=== PATIENT | male | born 1955 | race Caucasian/White ===

== ENCOUNTER 2023-11-26 11:27 | Emergency (ER) | payer OTHER, SELFPAY ==
--- NOTE | ~2023-11-26 | CT_ITS ---
EXAMINATION: CT ABDOMEN AND PELVIS WITH CONTRAST CLINICAL INFORMATION: Abdominal pain, obstruction versus diverticulitis COMPARISON: CT abdomen pelvis 08/30/2019. TECHNIQUE: Multidetector volumetric images were obtained from the superior aspect of the liver through the pubic symphysis following administration 85 mL of Omnipaque 350 intravenous contrast. Sagittal and coronal reformatted images were obtained on the technologist's workstation. Oral contrast: No This CT examination was performed using dose optimization techniques as appropriate, variously including the following: *Automated exposure control *Adjustment of mA and/or kV according to patient size (this includes techniques or standardized protocols for targeted exams where dose is matched to indication/reason for exam; i.e. extremities or head) *Use of iterative reconstruction technique DLP: 411 mGy-cm FINDINGS: Evaluation of the mid abdomen limited by motion artifact. LUNG BASES: Unremarkable. LIVER AND BILIARY TREE: Unremarkable. GALLBLADDER: Gallbladder partially decompressed, otherwise unremarkable. PANCREAS: Unremarkable. SPLEEN: Unremarkable. ADRENAL GLANDS: Unremarkable. KIDNEYS AND URETERS: Unremarkable. GASTROINTESTINAL TRACT: Postoperative appearance from right partial colectomy with primary ileocolonic anastomosis in the right upper abdomen. Mild scattered sigmoid predominant colonic diverticulosis. Focal inflammatory fat stranding about a presumed thick-walled diverticulum in the colonic splenic flexure (series 4, image 285; series 5, image 29). No extraluminal gas or pericolonic fluid collections identified, within limitations of mild motion artifact at that location. VASCULAR: Mild aortoiliac calcific atherosclerosis again seen. LYMPH NODES: No lymphadenopathy. PERITONEUM: No ascites. BLADDER: Unremarkable. PELVIC VISCERA: Unremarkable. ABDOMINAL AND PELVIC WALL: Unremarkable. OSSEOUS STRUCTURES: Unremarkable. CT/CT abdomen pelvis w IV con IMPRESSION: Acute uncomplicated diverticulitis in the colonic splenic flexure. No extraluminal gas or pericolonic fluid collections identified, within limitations of mild motion artifact.
[2023-11-26 11:33] VITALS: BP 106/42; PULSE 65; RESP 18; O2SAT 100; BMI 22.5
[2023-11-26] MEDS: 0.9 % Sodium Chloride 1,000 ML 999 ML IV ×2 (12:24→15:11)
--- NOTE | 2023-11-26 12:27 | PC.NURSE ---
IV established, labs obtained and sent. fluids infusing, call marquez within reach.
[2023-11-26 12:29] LABS: MANUAL DIFF FLAG NO
[2023-11-26 12:30] LABS: Basophils Percent Auto 0.3 % (0-2); Eosinophils Absolute Auto 0.1 X10*3/uL (0.0-0.4); Eosinophils Percent Auto 0.5 % (0-4); Hematocrit 36.2 % (42.0-52.0); Hemoglobin 12.1 g/dl (14.0-18.0); Imm Gran Abs Auto 0.04 X10*3/uL (0.00-0.03); Imm Gran Pct Auto 0.4 % (0.0-0.4); Lymphocytes Absolute Auto 1.4 X10*3/uL (1.2-4.9); Lymphocytes Percent Auto 12.4 % (20-40); Mean Corpuscular HGB Conc 33.4 g/dl (31.0-36.0); Mean Corpuscular Hemoglobin 30.9 pg (27.0-33.0); Mean Corpuscular Volume 92.3 fL (80.0-98.0); Mean Platelet Volume 9.2 fL (9.4-12.4); Monocytes Absolute Auto 0.5 X10*3/uL (0.1-1.2); Monocytes Percent Auto 4.8 % (2-11); Neutrophils Percent Auto 81.6 % (45-73); Platelet Count 127 X10*3/uL (160-400); Red Blood Count 3.92 X10*6/uL (4.60-5.80); Red Cell Distribution Width 12.1 % (11.0-16.0); White Blood Count 11.1 X10*3/uL (4.8-10.8)
--- NOTE | 2023-11-26 12:30 | ED_ITS ---
HPI - Abdominal Pain General Chief Complaint: Abdominal Pain Stated Complaint: kidney stone Time Seen by Provider: 11/26/23 11:47 Source: patient Mode of arrival: ambulatory History of Present Illness HPI narrative: 67-year-old male reports a surgical history and woke up this morning with abdominal pain that he describes in the right lower quadrant without associated fever/chills/nausea/vomiting but states he can no longer pass flatus and has not had a bowel movement. He denies any dysuria. Patient reports that he has had head bobbing action and bilateral upper extremity tremor for many years. Related Data Previous Rx's ?Medication ?Instructions ?Recorded amoxicillin 875 mg-potassium 1 tab PO BID 10 days #20 tabs 11/26/23 clavulanate 125 mg tablet Allergies Allergy/AdvReac Type Severity Reaction Status Date / Time aspirin [ASA] Allergy Severe FACIAL Verified 11/26/23 11:34 SWELLING Review of Systems Review of Systems Pertinent positives and negatives as stated in HPI PMFSH Past Medical History Source: nursing notes reviewed Social History Social History Advance Directives: No Do you have a plan to hurt others: No Plan Physical Exam ED Vital Signs: Vital Signs - 24 hr 11/26/23 11:33 11/26/23 15:24 Temperature 97.7 F Pulse Rate 65 73 Respiratory Rate 18 16 Blood Pressure 106/42 L 143/77 H Pulse Oximetry 100 99 Oxygen Delivery Method Room Air Room Air BMI result Body Mass Index 22.5 VITAL SIGNS: Reviewed. GENERAL: Well developed, well nourished, in no acute distress. HEAD: Normocephalic/atraumatic EYES: PERRLA, EOMI LUNGS: Normal breath sounds. No adventitious sounds or accessory muscle use. SpO2<100> CARDIOVASCULAR: Regular rate and rhythm without noted murmurs ABDOMEN: Soft, lower abdominal discomfort, scar consistent with exploratory laparotomy, non-distended with hypoactive bowel sounds. MUSCULOSKELETAL: No tenderness, deformities, or effusions noted on gross inspection. EXTREMITIES: No cyanosis, clubbing or edema. SKIN: Inspection of the skin reveals no rashes NEUROLOGIC: Alert and oriented x 4. Strength and sensation to light touch were grossly intact x 4. Medical Decision Making Medical Decision Making MDM Narrative: 67-year-old male with history and clinical presentation, DDX: Obstruction, diverticulitis, low clinical suspicion for perforation, possibility of appendicitis INTERVENTION: IV fluids, antibiotics I reviewed all investigations and hematologic indices demonstrate a very subtle elevation leukocytes, there is a normocytic anemia and no history or clinical findings to suggest acute bleeding, patient has a mild thrombocytopenia. Chemistry indices demonstrate a mild MELBA but otherwise no electrolyte or liver enzyme derangements. Urinalysis negative for UTI/hematuria. CT scan demonstrates diverticulitis. Will p.o. challenge and if tolerated patient will be able to go home with 10 days of antibiotics, will also repeat BNP as he has received a total of 2 L of IV fluids. Signed out to Dr Pickett - f/u BMP then d/c Differential Diagnosis Differential Diagnoses: The differential diagnosis associated with the presentation includes Please see the discussion above Admission/Observation Consideration of admission/observation: Escalation of care including admission/observation considered Please see the discussion above Lab Data MDM Lab Attestation statement: I reviewed the patient's lab results. Please see the discussion above 11/26/23 12:24 11/26/23 12:24 Labs: Lab Results 11/26/23 11/26/23 11/26/23 Range/Units 12:24 14:32 15:14 WBC 11.1 H (4.8-10.8) X10*3/uL RBC 3.92 L (4.60-5.80) X10*6/uL Hgb 12.1 L (14.0-18.0) g/dl Hct 36.2 L (42.0-52.0) % MCV 92.3 (80.0-98.0) fL MCH 30.9 (27.0-33.0) pg MCHC 33.4 (31.0-36.0) g/dl RDW 12.1 (11.0-16.0) % Plt Count 127 L (160-400) X10*3/uL MPV 9.2 L (9.4-12.4) fL Immature Gran % (Auto) 0.4 (0.0-0.4) % Neut % (Auto) 81.6 H (45-73) % Lymph % (Auto) 12.4 L (20-40) % [place] % (Auto) 4.8 (2-11) % Eos % (Auto) 0.5 (0-4) % Baso % (Auto) 0.3 (0-2) % Lymph # (Auto) 1.4 (1.2-4.9) X10*3/uL [place] # (Auto) 0.5 (0.1-1.2) X10*3/uL Eos # (Auto) 0.1 (0.0-0.4) X10*3/uL Baso # (Auto) 0.0 (0.0-0.2) X10*3/uL Abs Immat Gran (auto) 0.04 H (0.00-0.03) X10*3/uL Absolute Neuts (auto) 9.0 H (2.0-8.3) x10*3/uL Absolute Nucleated RBC 0.000 (0.0-0.012) X10*3/uL Nucleated RBC % (auto) 0.0 (0.0-0.2) /100WBC Sodium 140 (135-145) mmol/L Potassium 4.3 (3.3-5.1) mmol/L Chloride 110 H (96-108) mmol/L Carbon Dioxide 21 L (22-29) mmol/L Anion Gap 13 (12-20) BUN 24 H (9-16) mg/dL Creatinine 1.43 H (0.5-1.4) mg/dL Estim Creat Clear Calc 45.9 Estimated GFR 50 Random Glucose 183 H (60-115) mg/dL Lactic Acid 1.7 (0.5-2.0) mmol/L Calcium 9.0 (8.4-10.2) mg/dL Total Bilirubin 0.5 (0.0-1.0) mg/dL Direct Bilirubin 0.2 (0.0-0.5) mg/dL AST 15 (5-37) U/L ALT 9 (0-40) U/L Alkaline Phosphatase 63 (39-117) U/L Total Protein 7.0 (6.5-8.0) g/dL Albumin 3.9 (3.5-5.0) g/dL Lipase 26 (8-78) U/L Urine Color Yellow Urine Appearance Clear Urine pH 7.0 (5.0-9.0) Ur Specific [place] 1.020 (1.005-1.025) Urine Protein Negative (Neg-Trace) mg/dL Urine Glucose (UA) Negative (Negative) mg/dL Urine Ketones Negative (Negative) mg/dL Urine Blood Negative (Negative) Urine Nitrite Negative (Negative) Ur Leukocyte Esterase Negative (Negative) Radiology Impression Discussion of test interpretation with radiology: I have reviewed the radiologist's reading. Radiologist Impression: Please see the discussion above External Record Review External record reviewed: Outpatient record and Prior outpatient labs Medications Administered Discontinued Medications Generic Name Dose Route Start Last Admin Trade Name Freq PRN Reason Stop Dose Admin Sodium Chloride 1,000 mls @ 999 mls/hr 11/26/23 12:00 11/26/23 13:30 Ns IV 11/26/23 13:00 Infused .Q1H1M ALANA Infusion Sodium Chloride 1,000 mls @ 999 mls/hr 11/26/23 13:15 11/26/23 15:11 Ns IV 11/26/23 14:15 999 mls/hr .Q1H1M ALANA Administration Piperacillin Sod/Tazobactam 50 mls @ 100 mls/hr 11/26/23 14:50 11/26/23 15:14 Sod 3.375 gm/ Sodium Chloride IV 11/26/23 15:19 100 mls/hr ONCE ONE Administration Iohexol 100 ml 11/26/23 13:50 11/26/23 13:50 Iohexol 350 Mg/Ml 100 Ml Infus..Btl IV 11/26/23 13:51 85 ml ONCE ONE Administration Critical Care Time Critical Care Time Critical Care Time: Yes Total Critical Care Time: 45 Attestation: I personally attest to this time spent taking care of the patient. Discharge Plan Discharge Clinical Impression: MELBA (acute kidney injury), Diverticulitis Patient Disposition: Still a Patient Instructions: Diverticulitis (ED), Diverticulitis Diet (ED), Acute Kidney Injury (DC) Additional Instructions: Complete entire course of antibiotics. You will need a colonoscopy 6 weeks after completion of the antibiotics, please discuss this with your primary care doctor. Prescriptions: New amoxicillin-pot clavulanate 875-125 mg tablet 1 tab PO BID 10 Days Qty: 20 0RF Referrals: Peter Lew MD [Primary Care Provider] - Print Language: Kazakh
[2023-11-26 12:49] LABS: Alanine Aminotransferase 9 U/L (0-40); Albumin Level 3.9 g/dL (3.5-5.0); Alkaline Phosphatase 63 U/L (39-117); Anion Gap 13 (12-20); Aspartate Amino Transferase 15 U/L (5-37); Bilirubin Direct 0.2 mg/dL (0.0-0.5); Bilirubin Total 0.5 mg/dL (0.0-1.0); Blood Urea Nitrogen 24 mg/dL (9-16); Carbon Dioxide 21 mmol/L (22-29); Chloride 110 mmol/L (96-108); Creatinine Clr Calc Pharmacy 45.9; Estimated Glomerular Filt Rate 50; Glucose Random 183 mg/dL (60-115); Lipase 26 U/L (8-78); Potassium 4.3 mmol/L (3.3-5.1); Sodium 140 mmol/L (135-145)
[2023-11-26] MEDS: iohexoL 350 MG/ML 100 ML INFUS..BTL IV (13:50)
[2023-11-26 14:45] LABS: Appearance Urine Clear; Color Urine Yellow; Glucose Urine UA Negative (Negative); Leukocyte Esterase Urine Negative (Negative); Nitrite Urine Negative (Negative); Urine Blood Negative (Negative); Urine Ketones Negative (Negative); Urine Protein Negative (Neg-Trace)
[2023-11-26] MEDS: Piperacillin Sodium/Tazobactam 3.375 GM in 0.9 % Sodium Chloride 50 ML IV (15:14)
[2023-11-26 15:24] VITALS: BP 143/77; PULSE 73; RESP 16; TEMP 36.5; O2SAT 99
[2023-11-26 15:38] LABS: Lactic Acid 1.7 mmol/L (0.5-2.0)
--- NOTE | 2023-11-26 16:31 | PC.NURSE ---
patient ambulated to bathroom with steady gait
[2023-11-26 16:42] LABS: Anion Gap 12 (12-20); Blood Urea Nitrogen 21 mg/dL (9-16); Calcium 8.6 mg/dL (8.4-10.2); Carbon Dioxide 18 mmol/L (22-29); Chloride 115 mmol/L (96-108); Creatinine Clr Calc Pharmacy 53.8; Estimated Glomerular Filt Rate 60; Glucose Random 95 mg/dL (60-115); Potassium 4.4 mmol/L (3.3-5.1); Sodium 141 mmol/L (135-145)
[2023-11-26 18:00] VITALS: BP 143/77; PULSE 73; RESP 16; TEMP 36.5; O2SAT 99
== END 2023-11-26 18:01 | disposition home or self-care (01) ==
PROVIDERS: Student in an Organized Health Care Education/Training Program; Emergency Provider Emergency Medicine; PCP Pediatrics
DX: N17.9 Acute kidney failure, unspecified (principal); R10.31 Right lower quadrant pain; K57.92 Diverticulitis of intestine, part unspecified, without perforation or abscess without bleeding
CPT/HCPCS: 36415; 74177; 80048; 80076; 81003; 83605; 83690; 85025; 87040; 96361; 96374; 99284; 99285; J2543; Q9967

== ENCOUNTER 2024-05-06 15:02 | Emergency (ER) | payer OTHER, SELFPAY ==
[2024-05-06 15:05] VITALS: BP 117/64; PULSE 74; RESP 16; TEMP 36.2; O2SAT 97; BMI 27.1
--- NOTE | 2024-05-06 15:05 | ED.GENADULT ---
HPI - General Adult General Chief complaint: General Medical Stated complaint: Choked on food still in throat Time Seen by Provider: 05/06/24 17:20 Source: patient History of Present Illness ED Provider: Dr. Miesha Osuna HPI narrative: patient comes to the emergency room complaining of piece of steak lodged in the esophagus. Patient states that he choked earlier today, could not breathe, his did Heimlich maneuver and patient started vomiting. Patient states that he was able to breathe afterwards but then started vomiting . Patient states that his drank giving him water to drink but patient kept vomiting it. Patient states that he still has foreign body sensation in the esophagus. Related Data Previous Rx's ?Medication ?Instructions ?Recorded amoxicillin 875 mg-potassium 1 tab PO BID 10 days #20 tabs 11/26/23 clavulanate 125 mg tablet Allergies Allergy/AdvReac Type Severity Reaction Status Date / Time aspirin [ASA] Allergy Severe FACIAL Verified 05/06/24 15:12 SWELLING Review of Systems Review of Systems: Constitutional : No Weight loss, No Fever, No Chills, No Night Sweats, No Fatigue, No Malaise ENT/Mouth : No Hearing loss, No Ear Pain, No Nasal Congestion, No Sinus Pain, No Hoarseness, No sore throat, No Rhinorrhea, No Swallowing Difficulty Eyes: No Eye Pain, No Swelling, No Redness, No Foreign Body, No Discharge, No Vision Changes Cardiovascular : No Chest Pain, No SOB, No Dyspnea on Exertion, No Orthopnea, No Edema, No Palpitations Respiratory : No Cough, No Sputum, No Wheezing, No Smoke Exposure, No Dyspnea Gastrointestinal : Complaining of foreign body sensation stuck in the esophagus, stick.No Nausea, No Vomiting, No Diarrhea, No Constipation, No abdominal Pain, No Hematochezia, No Melena Genitourinary : no irregular bleeding, No Dysuria, No Urinary Frequency, No Hematuria, No Urinary Incontinence, No Urgency, No Flank Pain, No Urinary Flow Changes, No Hesitancy Musculoskeletal : No joint pain, No Myalgias, No Joint Swelling Skin : No Skin Lesions, No rash Neuro : No Weakness, No Numbness, No Paresthesias, No Loss of Consciousness, No Dizziness, No Headache Psych : No Anxiety/Panic, No Depression, No SI/HI/AH/VH, No Social Issues, Heme/Lymph: No Bruising, No Bleeding,No Lymphadenopathy Endocrine : No Polyuria, No Polydipsia, No Temperature Intolerance [facility] Social History Social History Advance Directives: No Advance Directives Information Provided: No Physical Exam ED Vital Signs: Vital Signs - 24 hr 05/06/24 15:05 05/06/24 15:40 05/06/24 17:31 Temperature 97.1 F Pulse Rate 74 61 Respiratory Rate 16 16 Blood Pressure 117/64 133/71 Pulse Oximetry 97 98 Oxygen Delivery Method Room Air Room Air 05/06/24 18:04 Temperature Pulse Rate 60 Respiratory Rate 16 Blood Pressure 121/66 Pulse Oximetry 99 Oxygen Delivery Method Room Air BMI result Body Mass Index 27.1 Const Other: Appearance: Alert. Oriented X3. No acute distress. Well-appearing Eyes: Pupils equal, round and reactive to light. ENT: Pharynx normal. Neck: Normal inspection. Neck supple. No lymph nodes noted. No crepitus CVS: Normal heart rate and rhythm. Pulses normal. Normal S1 and S2 Respiratory: No respiratory distress. Breath sounds normal. No Wheezing. No rales Abdomen: Soft and nontender. No rigidity. No distention. Skin: Skin warm and dry. Normal skin color. Normal skin turgor. Extremities: No lower extremity edema. No Lacerations. No Rash Neuro: Oriented X 3. No motor deficit. No sensory deficit. Moving all extremities. No slurred speech. CN 2 through 12 grossly intact Psych: calm, cooperative, normal affect Course Course Course Narrative: This is a Rapid Medical Examination (RME) performed by Billie Keller PA-C in triage. Full HPI, ROS, assessment and treatment plan per primary provider in the Main ED. 68 yo male here for eval of esophageal food bolus. admits to eating baked potato and steak 10 mins [employer] in ED, began choking. friend attempted Heimlich and states patient brought phelgm up. patient reports feeling like there is still something stuck in his throat. no hx of similar. has attempted to drink cranberry juice however could not get it down. + well appearing Plan: further eval in back Medications Administered Discontinued Medications Generic Name Dose Route Start Last Admin Trade Name Freq PRN Reason Stop Dose Admin Glucagon 1 mg 05/06/24 15:31 05/06/24 15:37 Glucagon Hcl 1 Mg Vial IVPUSH 05/06/24 15:32 1 mg ONCE ONE Administration Nitroglycerin 0.4 mg 05/06/24 17:26 05/06/24 17:31 Nitroglycerin 0.4 Mg Tab.Subl SUBLINGUAL 05/06/24 17:27 0.4 mg ONCE ONE Administration Medical Decision Making Medical Decision Making [facility] Narrative: my interpretation of labs, normal hematology, normal chemistry. - Patient was given IV glucagon on arrival, patient tried swallowing but states that he did still have foreign body sensation, One tablet of sublingual nitroglycerin was given. Patient was able to drink a whole can of emi scotty and patient states that he feels well. the sensation of foreign body sensation in the esophagus has resolved - On discharge, blood pressure 121/66, pulse 60, temperature normal Lab Data [facility] Lab Attestation statement: I reviewed the patient's lab results. 05/06/24 15:28 05/06/24 15:28 Labs: Lab Results 05/06/24 Range/Units 15:28 WBC 7.2 (4.8-10.8) X10*3/uL RBC 3.99 L (4.60-5.80) X10*6/uL Hgb 12.3 L (14.0-18.0) g/dl Hct 36.8 L (42.0-52.0) % MCV 92.2 (80.0-98.0) fL MCH 30.8 (27.0-33.0) pg MCHC 33.4 (31.0-36.0) g/dl RDW 12.4 (11.0-16.0) % Plt Count 141 L (160-400) X10*3/uL MPV 9.6 (9.4-12.4) fL Immature Gran % (Auto) 0.6 H (0.0-0.4) % Neut % (Auto) 57.5 (45-73) % Lymph % (Auto) 30.1 (20-40) % [place] % (Auto) 8.3 (2-11) % Eos % (Auto) 3.1 (0-4) % Baso % (Auto) 0.4 (0-2) % Lymph # (Auto) 2.2 (1.2-4.9) X10*3/uL [place] # (Auto) 0.6 (0.1-1.2) X10*3/uL Eos # (Auto) 0.2 (0.0-0.4) X10*3/uL Baso # (Auto) 0.0 (0.0-0.2) X10*3/uL Abs Immat Gran (auto) 0.04 H (0.00-0.03) X10*3/uL Absolute Neuts (auto) 4.2 (2.0-8.3) x10*3/uL Absolute Nucleated RBC 0.000 (0.0-0.012) X10*3/uL Nucleated RBC % (auto) 0.0 (0.0-0.2) /100WBC PT 10.5 L (10.9-12.4) SEC INR 0.9 (0.9-1.1) Sodium 144 (135-145) mmol/L Potassium 4.2 (3.3-5.1) mmol/L Chloride 113 H (96-108) mmol/L Carbon Dioxide 23 (22-29) mmol/L Anion Gap 12 (12-20) BUN 15 (9-16) mg/dL Creatinine 1.30 (0.5-1.4) mg/dL Estim Creat Clear Calc 48.9 Estimated GFR 55 Random Glucose 100 (60-115) mg/dL Calcium 9.5 D (8.4-10.2) mg/dL Total Bilirubin 0.4 (0.0-1.0) mg/dL AST 15 (5-37) U/L ALT 11 (0-40) U/L Alkaline Phosphatase 67 (39-117) U/L Total Protein 7.1 (6.5-8.0) g/dL Albumin 3.9 (3.5-5.0) g/dL Discharge Plan Discharge Clinical Impression: Esophageal foreign body Patient Disposition: Home, Self-Care Instructions: Esophageal Foreign Body (ED) Additional Instructions: Please follow-up with your primary care physician tomorrow. If you have any worsening or new symptoms, please return to the emergency room or call 911 Prescriptions: No Action amoxicillin-pot clavulanate 875-125 mg tablet 1 tab PO BID 10 Days Qty: 20 0RF Print Language: Vietnamese
[2024-05-06] MEDS: glucagon HCL 1 MG VIAL IVPUSH (15:37)
[2024-05-06 15:38] LABS: MANUAL DIFF FLAG NO
[2024-05-06 15:39] LABS: Basophils Percent Auto 0.4 % (0-2); Eosinophils Absolute Auto 0.2 X10*3/uL (0.0-0.4); Eosinophils Percent Auto 3.1 % (0-4); Hematocrit 36.8 % (42.0-52.0); Hemoglobin 12.3 g/dl (14.0-18.0); Imm Gran Abs Auto 0.04 X10*3/uL (0.00-0.03); Imm Gran Pct Auto 0.6 % (0.0-0.4); Lymphocytes Absolute Auto 2.2 X10*3/uL (1.2-4.9); Lymphocytes Percent Auto 30.1 % (20-40); Mean Corpuscular HGB Conc 33.4 g/dl (31.0-36.0); Mean Corpuscular Hemoglobin 30.8 pg (27.0-33.0); Mean Corpuscular Volume 92.2 fL (80.0-98.0); Mean Platelet Volume 9.6 fL (9.4-12.4); Monocytes Absolute Auto 0.6 X10*3/uL (0.1-1.2); Monocytes Percent Auto 8.3 % (2-11); Neutrophils Absolute Auto 4.2 x10*3/uL (2.0-8.3); Neutrophils Percent Auto 57.5 % (45-73); Platelet Count 141 X10*3/uL (160-400); Red Blood Count 3.99 X10*6/uL (4.60-5.80); Red Cell Distribution Width 12.4 % (11.0-16.0); White Blood Count 7.2 X10*3/uL (4.8-10.8)
[2024-05-06 15:40] VITALS: RESP 16; O2SAT 98
--- NOTE | 2024-05-06 15:41 | PC.NURSE ---
Pt arrived to Ed bed unable to answer this RN questions but is able to nod head yes or no. family member at bedside stating he was swallowing a small piece of steak, pt does not have any history of choking in the past, pt has no previous throat surgeries. PT O2 stable on RA, IV placed, labs sent, IV glucagon order placed and given. 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
[2024-05-06 15:48] LABS: INTERNATIONAL NORM RATIO 0.9 (0.9-1.1); Prothrombin Time 10.5 SEC (10.9-12.4)
[2024-05-06 16:04] LABS: Alanine Aminotransferase 11 U/L (0-40); Albumin Level 3.9 g/dL (3.5-5.0); Alkaline Phosphatase 67 U/L (39-117); Anion Gap 12 (12-20); Aspartate Amino Transferase 15 U/L (5-37); Bilirubin Total 0.4 mg/dL (0.0-1.0); Blood Urea Nitrogen 15 mg/dL (9-16); Calcium 9.5 mg/dL (8.4-10.2); Carbon Dioxide 23 mmol/L (22-29); Chloride 113 mmol/L (96-108); Creatinine Clr Calc Pharmacy 48.9; Estimated Glomerular Filt Rate 55; Glucose Random 100 mg/dL (60-115); Potassium 4.2 mmol/L (3.3-5.1); Sodium 144 mmol/L (135-145); Total Protein 7.1 g/dL (6.5-8.0)
[2024-05-06 17:31] VITALS: BP 133/71; PULSE 61
[2024-05-06] MEDS: Nitroglycerin 0.4 MG TAB.SUBL SUBLINGUAL (17:31)
[2024-05-06 18:04] VITALS: BP 121/66; PULSE 60; RESP 16; O2SAT 99
[2024-05-06 18:16] VITALS: BP 121/66; PULSE 60; RESP 16; TEMP 37.2; O2SAT 99
== END 2024-05-06 18:17 | disposition home or self-care (01) ==
PROVIDERS: Emergency Provider Emergency Medicine
DX: R09.89 Other specified symptoms and signs involving the circulatory and respiratory systems (principal); R06.02 Shortness of breath; Z79.899 Other long term (current) drug therapy
CPT/HCPCS: 36415; 80053; 85025; 85610; 96374; 99284; J1610

== ENCOUNTER 2025-06-09 13:45 | Emergency (ER) | payer OTHER, SELFPAY ==
--- NOTE | ~2025-06-09 | CT_ITS ---
CLINICAL HISTORY: low back pain s p fall CT lumbar spine without contrast Comparison: None provided Findings: Normal vertebral body alignment. No acute fractures or dislocations. Mild degenerative changes are demonstrated throughout with facet arthropathy without findings of high-grade canal stenosis. Visualized abdominal contents unremarkable. IMPRESSION: No acute lumbar spine findings. This document has been electronically signed by: Edilson Hoyt MD on 06/09/2025 16:15:14
[2025-06-09 14:31] VITALS: BP 131/75; PULSE 94; RESP 16; TEMP 36.8; O2SAT 97; BMI 21.5
--- NOTE | 2025-06-09 14:33 | ED_ITS ---
HPI - General Adult General Chief complaint: Fall Stated complaint: fall, back pain Time Seen by Provider: 06/09/25 16:13 Source: patient and family Mode of arrival: ambulatory Limitations: no limitations History of Present Illness ED Provider: Jackeline Nguyen APRN HPI narrative: this is a 69-year-old male with a history of seizures and tremor who presents the ER after a slip and fall down 2 stairs landing on his buttocks. He denies hitting his head or loss of consciousness. He was ambulatory after the fall. No radiation of pain. No numbness or tingling of the groin or in the legs. No bowel or bladder incontinence. No fevers or chills. No history of chronic back pain. Has not taken any meds prior to arrival. Related Data Previous Rx's ?Medication ?Instructions ?Recorded amoxicillin 875 mg-potassium 1 tab PO BID 10 days #20 tabs 11/26/23 clavulanate 125 mg tablet acetaminophen 325 mg tablet 650 mg (2 x 325 mg) PO Q4H PRN 06/09/25 (Tylenol) pain #30 tabs lidocaine 5 % topical patch 1 patch topical DAILY #15 ea 06/09/25 (Lidoderm) Allergies Allergy/AdvReac Type Severity Reaction Status Date / Time aspirin (ASA) Allergy Severe FACIAL Verified 06/09/25 14:35 SWELLING Review of Systems Review of Systems: Yes all other systems are reviewed and are negative Constitutional: Constitutional: Reports no additional constitutional complaints, Denies body ache(s), Denies chills, Denies fever(s), Denies headache(s) and Denies weakness Eyes: Eyes: Reports no additional eye complaints and Denies change in vision ENT: Reports system reviewed and no additional complaints, except as documented, Denies dizziness, Denies headache(s), Denies nasal congestion, Denies nasal discharge and Denies neck pain Cardiovascular: Cardiovascular: Reports no additional cardiovascular complaints, Denies chest pain, Denies leg edema and Denies dyspnea Respiratory: Respiratory: Reports no additional respiratory complaints, Denies cough and Denies dyspnea Gastrointestinal: Gastrointestinal: Reports no additional gastrointestinal complaints, Denies abdominal pain, Denies diarrhea, Denies nausea and Denies vomiting Genitourinary: Genitourinary: Denies urinary incontinence Musculoskeletal: Musculoskeletal: Reports no additional musculoskeletal complaints, Reports back pain, Denies arthralgias, Denies joint swelling, Denies neck pain, Denies numbness and Denies tingling Integumentary/Breasts: Skin/Breast: Reports system reviewed and no additional complaints, except as docu and Denies rash Neurologic: Reports system reviewed and no additional complaints, except as documented, Denies Abnormal speech present, Denies dizziness, Denies headache(s), Denies numbness, Denies tingling and Denies weakness PMF Past Medical History Attestation statement: The following information was validated with the patient. Source: old records reviewed and nursing notes reviewed Social History Social History Advance Directives: Yes Advance Directives Information Provided: No Advance Directives on File: No Physical Exam ED Vital Signs: Vital Signs - 24 hr 06/09/25 14:31 06/09/25 16:29 Temperature 98.2 F 98.1 F Pulse Rate 94 85 Respiratory Rate 16 16 Blood Pressure 131/75 147/79 H Pulse Oximetry 97 98 Oxygen Delivery Method Room Air Room Air BMI result Body Mass Index 21.5 Const General: cooperative, healthy appearing, comfortable and no acute distress Orientation/consciousness: patient oriented x3 Limitations: no limitations HENMT Head: Yes normal to inspection Ears: hearing grossly normal bilaterally General nose exam: Normal external nose present Face and sinus: Yes normal facial exam Mouth: Normal oral and palatal mucosa present Throat: Yes posterior oropharynx normal Eyes General: appearance normal, both eyes and all related structures Pupils: Equal, round and reactive pupils present Neck Neck: Yes normal visual inspection Chest Chest palpation & inspection: normal inspection of the chest Resp Effort & Inspection: normal respiratory effort Auscultation: clear to auscultation bilaterally Cardio Rate: regular rate Rhythm: regular rhythm Peripheral pulses: Peripheral pulses 2+ throughout GI Inspection: Yes normal to inspection Palpation (GI): Soft to palpation and nontender Auscultation: normal bowel sounds Back/Spine/Pelvis Other: Tenderness the lumbar mid spine with no step-offs or deformities as well as to the soft tissue bilaterally Thoracic/Lumbar Spine: thoracic and lumbar spine normal to inspection Skin General skin exam: no rashes or lesions noted Neuro General: patient oriented x3, no focal motor deficits and normal sensation to monofilament Cranial nerves: Yes CN's II-XII intact bilaterally, Yes Equal, round and reactive pupils present, Yes Bilaterally intact EOM present, Yes Nystagmus not present, Yes Normal facial strength present and Yes Midline tongue present Cognition (Neuro): normal cognition Speech: No Abnormal speech present Motor exam (neuro): 5/5 motor strength present throughout Deep tendon reflexes (DTR's): Right patellar reflex intensity grade: 2+ and Left patellar reflex intensity grade: 2+ Extrem General: Yes normal to inspection Course Course Course Narrative: Rapid medical examination performed in triage by Kassandra Blakely PA-C: Patient is a 69 year old assigned male at presenting to the emergency department with low back pain after a slip and fall. Patient states that he missed the last 2 steps and fell, landing on his buttock and now his lower back hurts. Patient denies any head strike or loss of consciousness. Patient states that he is not on any anti-coags. Detailed physical exam and review of systems are deferred to the day camp unit leader. Imaging ordered. Patient placed back in the waiting room pending room availability and results. Medical Decision Making Medical Decision Making [facility] Narrative: this is a 69-year-old male with a history of seizures and tremor who presents the ER after a slip and fall down 2 stairs landing on his buttocks. He denies hitting his head or loss of consciousness. He was ambulatory after the fall. No radiation of pain. No numbness or tingling of the groin or in the legs. No bowel or bladder incontinence. No fevers or chills. No history of chronic back pain. Has not taken any meds prior to arrival. TTP to mid lumbar spine with no step offs or deformities Normal neuro exam with no focal deficits Will review CT lumbar spine Will provide analgesia Differential Diagnosis Differential Diagnoses: The differential diagnosis associated with the presentation includes contusion, fracture Low suspician for cord compression/caude equina, epidural hematoma Admission/Observation Consideration of admission/observation: Escalation of care including admission/observation considered Lab Data MDM Lab Attestation statement: I reviewed the patient's lab results. Independent Interpretation I performed an independent interpretation of an: CT Scan Radiology Impression Discussion of test interpretation with radiology: I have reviewed the radiologist's reading. Radiologist Impression: [address] [address] [address] Scan Report Signed Patient: Aldo Betancourt MR#: [id number] : 1955 Acct:[id number] Age/Sex: 69 / M ADM Date: 06/09/25 Loc: HO.ED Attending Dr: Ordering Physician: Kassandra Blakely Date of Service: 06/09/25 Procedure(s): CT lumbar spine wo IV con Accession Number(s): [id number] cc: Peter Lew MD; Kassandra Blakely~ Report Number: [id number]: Total DLP = 473.00 mGy-cm Reason for Exam: low back pain s/p fall CLINICAL HISTORY: low back pain s p fall CT lumbar spine without contrast Comparison: None provided Findings: Normal vertebral body alignment. No acute fractures or dislocations. Mild degenerative changes are demonstrated throughout with facet arthropathy without findings of high-grade canal stenosis. Visualized abdominal contents unremarkable. IMPRESSION: No acute lumbar spine findings. This document has been electronically signed by: Edilson Hoyt MD on 06/09/2025 16:15:14 Independent Historian Clinical information obtained from an independent historian. History obtained from or confirmed by: Friend Prescription Management I considered prescription management with: Pain Medication Discharge Plan Discharge Clinical Impression: Lumbar contusion Patient Disposition: Home, Self-Care Instructions: Contusion in Adults (ED) Additional Instructions: Your CT scan is normal Apply ice the area Tylenol for pain Prescriptions: New acetaminophen [Tylenol] 325 mg tablet 650 mg PO Q4H PRN (Reason: pain) Qty: 30 0RF lidocaine [Lidoderm] 5 % adhesive patch,medicated 1 patch topical DAILY Qty: 15 0RF Rx Instructions: leave on most painful area for up to 12 hrs No Action amoxicillin-pot clavulanate 875-125 mg tablet 1 tab PO BID 10 Days Qty: 20 0RF Referrals: Peter Lew MD [Primary Care Provider, Internal Medicine] Print Language: Bengali
[2025-06-09 16:29] VITALS: BP 147/79; PULSE 85; RESP 16; TEMP 36.7; O2SAT 98
--- OUTSIDE RECORDS SUMMARY | 2025-06-09 16:33 | XMS_ITS | Clinical Summary ---
Author Organization [employer] [facility] ity Address [address] [place] [address] Care Team Providers Care Tar Pot Man Name Role Phone Unavailable Primary Care Provider Unavailabl e Social History Tobacco Use Types Packs/Day Years Used Date Smoking Tobacco: Never Assessed Sex and Gender Information Value Date Recorded Sex Assigned at Not on file Legal Sex Male 10:16 PM EST Gender Identity Not on file Sexual Orientation Not on file Plan of Treatment Health Maintenance Due Date Last Done Comments DTaP,Tdap,and Td Vaccines (1 - Tdap) 1976 Pneumococcal Vaccine: 50+ Ye ars (1 of 1 - PCV) 12/14/2007 Zoster Vaccines (1 of 2) 12/14/2007 Depression Screening 07/18/2024 COVID-19 Vaccine (1 - 2024-2 6 season) 2025 Influenza Vaccine (#1) 2025 RSV Immunization Adult Patie nts (1 - 1-dose 75+ series) 2032 HIB Vaccines Aged Out No longer eligi ble based on patient's age to complete this topic HPV Vaccines Aged Out No longer eligi ble based on patient's age to complete this topic Hepatitis A Vaccines Aged Out No long er eligible based on patient's age to complete this topic Hepatitis B Vaccines Aged Out No long er eligible based on patient's age to complete this topic IPV Vaccines Aged Out No longer eligi ble based on patient's age to complete this topic MMR Vaccines Aged Out No longer eligi ble based on patient's age to complete this topic Meningococcal ACWY Vaccine Aged Out N o longer eligible based on patient's age to complete this topic Meningococcal B Vaccine Aged Out No l onger eligible based on patient's age to complete this topic RSV Immunization Patients Un blaine 20 months Aged Out No longer eligible b ased on patient's age to complete this topic Varicella Vaccines Aged Out No longer eligible based on patient's age to complete this topic
--- OUTSIDE RECORDS SUMMARY | 2025-06-09 16:33 | XMS_ITS | Data Portability ---
Author Organization [employer] [facility], [email or web address] [facility] Address [address] [place] [address] Care Team Providers Care Director Summer Sessions Name Role Phone [facility] Referring Provider Assessment Encounter Date Assessment Date Assessment LastModified by Organization Details LastModified Time 12/27/2022 12/27/2022 service called for cointued dysuria found 67 yom recently dx UTI and completed course bactrim without improvement dysuria no f/c/flank pain VS af, othereise unremarkable #UTI in male UCx empiric keflex, adjust following UCx return to primary team [email or web address] Not available 12/27/2022 19:46:24 Plan of Treatment Reminders Order Date Submit Date Provider Last Modified By Organization Details Last Modified Time Details Appointments None recorded. Lab culture, urine 023 023 [facility] (Centralized Electronic Ordering - All Locations), Patient Can Go To The Location Of Their Choice, [id number] 08:38:48 Referral None recorded. Procedures None recorded. Surgeries None recorded. Imaging None recorded. Medication Orders Keflex 500 mg capsule 023 023 [facility] #[id number], [address] [place], [address], 17:56:32 Patient TargetsNo targets recorded. Patient InstructionsNo instructions recorded. Reason for Referral None Reported. Results Created Date Observation Date Name Description Value Unit Range Abnormal Flag Note LastModifiedBy Organization Detail LastModifiedTime 12/28/1912/27/2022 URINE CULTU RE special requests NONE Not Available [facility] (Centralized Electronic Ordering - All Locations) Patient Can Go To The Location Of Their Choice, [id number] 12/29/2022 08:38:48 12/28/1912/28/2022 URINE CULTU RE specimen description URINE Not Available [facility] (Centralized Electronic Ordering - All Locations) Patient Can Go To The Location Of Their Choice, 12/29/2022 08:38:48 12/28/1912/29/2022 URINE CULTU RE culture Mixed bacter ial venkata, indica tive of urogen ital contam inatio n. Not Available [facility] (Centralized Electronic Ordering - All Locations) Patient Can Go To The Location Of Their Choice, 12/29/2022 08:38:48 12/28/19 23 12/29/2022 URINE CULTU RE report status FINAL 2022 Not Available [facility] (Centralized Electronic Ordering - All Locations) Patient Can Go To The Location Of Their Choice, 12/29/2022 08:38:48 01/22/20 23 01/21/2023 URINE CULTU RE specimen description CLEAN CATCH (URINE ) Not Available [facility] (Centralized Electronic Ordering - All Locations) Patient Can Go To The Location Of Their Choice, 01/22/2023 12:14:43 01/22/20 23 01/21/2023 URINE CULTU RE special requests NONE Not Available [facility] (Centralized Electronic Ordering - All Locations) Patient Can Go To The Location Of Their Choice, 01/22/2023 12:14:43 01/22/2001/22/2023 URINE CULTU RE culture Mixed bacter ial venkata, indica tive of urogen ital contam inatio n. Not Available [facility] (Centralized Electronic Ordering - All Locations) Patient Can Go To The Location Of Their Choice, 01/22/2023 12:14:43 01/22/20 23 01/22/2023 URINE CULTU RE report status FINAL 2022 Not Available [facility] (Centralized Electronic Ordering - All Locations) Patient Can Go To The Location Of Their Choice, 01/22/2023 12:14:43 12/28/19 23 12/27/2022 progr ess disch arge summa ry* No observ ation record ed. [email or web address] Not Available 2022 11:39:22 Result Notes None recorded. Medical Equipment None Reported. Allergies Allergen ID Allergen Name Allergen Category Reaction Reaction Severity Criticality Documentation Date Start Date Code Code System Note Provider Name and Address Organization Details Recorded Time 7680 aspirin medicatio n Not available Not available Not available 05/15/2024 1191 RxNorm Not Available [employer] - [facility] 4 03:39:04 7681 Product containin g penicilli n (product) medicatio n Not available Not available Not available 05/15/2024 65277 8001 SNOMED Not Available [facility] - production 4 03:39:04 Medications Name Sig Start Date Stop Date Status Note LastModified by Organization Details LastModified Time Anti-Diarrhe al (loperamide) 2 mg tablet TAKE 1 TAB BY MOUTH EVERY 8 HOURS NEEDED FOR LOOSE STOOL *MAX 16MG (8 TABS) A DAY* active Not Available Not Available No t Available acetaminophe n 325 mg tablet TAKE 2 TABLETS BY MOUTH EVERY 4 HOURS NEEDED FOR MILD PAIN active Not Available Not Available No t Available atorvastatin 20 mg tablet TAKE 1 TABLET BY MOUTH EVERYDAY AT BEDTIME active Not Available Not Available No t Available senna 8.6 mg tablet TOME TAWNY TABLETA TODOS LOS D AL ACOSTARSE active Not Available Not Available No t Available FreeStyle Lancets 28 gauge USE DIRECTED FOR TYPE 2 DIABETES MELLITUS TO CHECK BLOOD SUGAR DAILY active Not Available Not Available Not Available ondansetron HCl 4 mg tablet KEEGAN 1 TABLETA POR LA BOCA CADA 8 HORAS CUANDO SEA NECESARIO PARA NAUSEA Y VOMITO active Not Available Not Available No t Available metronidazol e 500 mg tablet TAKE 1 TABLET BY MOUTH EVERY 8 HOURS FOR 7 DAYS active Not Available Not Available No t Available sulfamethoxa zole 800 mg-trimethop rim 160 mg tablet TOME TAWNY TABLETA TODOS LOS D POR 5 D active Not Available Not Available No t Available peg-electrol yte solution 420 gram oral solution MIX DIRECTED AND DRINK 24OML BY MOUTH EVERY 10 MINUTES active Not Available Not Available N ot Available cephalexin 500 mg capsule TOME TAWNY C PSULA CADA SEIS HORAS POR 10 D active Not Available Not Available Not Available cyanocobalam in (vit B-12) 1,000 mcg/mL injection solution active Not Available Not Available Not Available losartan 25 mg tablet TAKE 1 TABLET BY MOUTH EVERY DAY active Not Available Not Available No t Available gabapentin 100 mg capsule TAKE 1 CAPSULE BY MOUTH THREE TIMES A DAY active Not Available Not Available Not Available levofloxacin 500 mg tablet TOME TAWNY TABLETA POR V A ORAL EVERY 24 HOURS FOR 7 DAYS active Not Available Not Available No t Available levofloxacin 750 mg tablet KEEGAN 1 TABLETA POR LA BOCA CADA 24 HORAS POR SIETE MUNIZ active Not Available Not Available N ot Available ondansetron 4 mg disintegrati ng tablet TOME TAWNY TABLETA POR V A ORAL CADA OCHO HORAS CUANDO SEA NECESARIO FOR NAUSEA/VOMI TING active Not Available Not Available No t Available metformin ER 500 mg tablet,exten ded release 24 hr TAKE 1 TABLETS BY MOUTH TWICE A DAY FOR 1 WEEK, THEN TAKE 2 TABS TWICE A DAY THEREAFTER active Not Available Not Available N ot Available clotrimazole 1 % topical cream APLIQUE AL SHELLEY AFECTADA DOS VECES AL D A active Not Available Not Available No t Available oxycodone 5 mg tablet KEEGAN 1 TABLETA POR LA BOCA CADA 6 HORAS CUANDO SEA NECESARIO PARA EL DOLOR DARLINE active Not Available Not Available No t Available cyclobenzapr ine 5 mg tablet PLEASE SEE ATTACHED FOR DETAILED DIRECTIONS active Not Available Not Available N ot Available OneTouch UltraSoft Lancets active Not Available Not Available Not Available BD Ultra-Fine Short Pen Needle 31 gauge x 5/16 active Not Available Not Available Not Available Lantus Solostar U-100 Insulin 100 unit/mL (3 mL) subcutaneous pen PLEASE SEE ATTACHED FOR DETAILED DIRECTIONS active Not Available Not Available N ot Available OneTouch Verio test strips TEST EVERY DAY IN THE MORNING BEFORE BREAKFAST USE DIRECTED FOR TYPE 2 DIABETES MELLITUS active Not Available Not Available No t Available Trulicity 1.5 mg/0.5 mL subcutaneous pen injector INJECT 1 PEN (0.5ML) SUBCUTANEOU SLY ONCE EVERY WEEK. ROTATE INJECTION SITES (DOSE INCREASE) active Not Available Not Available No t Available OneTouch Verio Flex Meter active Not Available Not Available Not Available FreeStyle Samuel 14 Day Sensor kit USE DIRECTED FOR TYPE 2 DIABETES MELLITUS active Not Available Not Available No t Available Reguloid (psyllium husk) 3 gram/5.4 gram oral powder active Not Available Not Available Not Available OneTouch Delica Plus Lancet 30 gauge active Not Available Not Available Not Available Vitals Date Recorded Body temperature Oxygen saturation Respiratory rate Body weight Heart rate Systolic And Diastolic Provider Name and Address Organization Details Last Updated DateTime 3 98.3 [degF] 100 % 16 /min 18549.8 g 78 /min 132/74 mm[Hg] Not Available [facility] - production 3 17:51:44 Social History None recorded. Functional Status None recorded. Mental Status None recorded. Family History Nothing Reported. Medical History No medical history recorded. Past Encounters Encounter ID Performer Location Encounter Start Date Encounter Closed Date Diagnosis/Indication Diagnosis SNOMED-CT Code Diagnosis ICD10 Code Diagnosis IMO Codes Diagnosis Note [id number] Salo Montalvo MD [facility] [address] [place] [address] 12/27/2022 17:51:35 12/28/2022 10:14:29 Dysuria 47766414 R30.0 Health Concerns Section Related Observation LastModified by Organization Detai ls LastModified Time None Recorded Concern Status LastModified by Organization Details LastModified Time None Recorded Advance Directives Directive None Recorded Payers Insurance Date Sequence Insurance Name Policy Number Policy Walls Covered Member ID Walls Member ID Guarantor Name 12/27/2022 1 [facility] - DOS ON OR AFTER 2022 - DUAL ELIGIBLE - PENITENTIARY OPTIONS AND ONE CARE (MEDICARE REPLACEMENT/ADV ANTAGE - HMO) Aldo Mcdowell [id number] Aldo Mcdowell Notes Date Note Type Note Provider Name and Address Organization Details Recorded Time 12/27/2022 text/html HPI: Pt. recently treated for UTI-still w/ burning w/ urination and urinary urgency .................. .................. .................. .................. .................. .................. .................. ............... [facility] Nursing Assessment: Comments: Review request no further information needed to process visit .................. .................. .................. .................. .................. .................. .................. ............... Passenger Agent Note From Gilberto Chavez: Pt presents A@Ox4 pink warm and dry. Pt c/o of continued painful urination, flank pain, and lower abdominal pain from previously diagnosed UTI. Pt was prescribed 5 day course of bactrim. Pt sts has not helped symptoms. Pt denies CO SOB Fever, blood in urine, or confusion. Pt denies nausea or diarrhea. Baseline vitals assessed and recorded . urine dip pos for ANGELINE and pro. Urine dark almost redish tint in color and foul smelling . Urine culture to [facility] . [facility] contacted and 500mg keflex given PO and Rx for keflex called in . Pt educated on signs that would indicate the ER. Pt advised to follow up with PCP [facility] Lab Orders: culture, urine: Performed Passenger Agent Allergies: Aspirin, Penicillin .................. .................. .................. .................. .................. .................. .................. ............... Disposition: Fulfilled Salo Montalvo MD [address] [facility],[address], [place], [address], [employer] 12/27/2022 19:46:37
--- OUTSIDE RECORDS SUMMARY | 2025-06-09 16:33 | XMS_ITS | Clinical Summary ---
Author Organization [facility] Address [address] [place] [address] Phone Care Team Providers Care Commercial Lines Account Manager Name Role Phone Peter Lew MD Primary Care Provider Allergies Active Allergy Reactions Criticality Noted Date Comments Aspirin 11/12/2024 Penicillin Hives 11/05/1994 Patient cannot recall this allergy Medications cyanocobalamin, vitamin B-12, 1000 MCG tablet daily. 10/12/19 25 Active TOPAMAX 100 mg tablet Take 100 mg by mouth 2 (two) times a day. 09/07/19 25 Active lacosamide (VIMPAT) 100 mg Tab START WITH TOME TAWNY TABLETA NIGHTLY. AFTER A WEEK, INCREASE TO DOS VECES AL D A Active gabapentin (NEURONTIN) 300 MG capsule TAKE 2 CAPSULES BY MOUTH IN MORNING THEN 1 CAPSULE AT NOON AND 1 CAPSULE IN EVENING 025 Discontinued levETIRAcetam (KEPPRA) 500 MG tablet Take 500 mg by mouth. 025 Discontinued propranoloL (INDERAL) 20 MG immediate release tablet Take 20 mg by mouth 2 (two) times a day. 10/05/19 25 025 Discontinued FREESTYLE ANU 3 SENSOR Cristin as directed. 11/01/19 25 025 Discontinued ondansetron (ZOFRAN-ODT) 4 MG disintegrating tablet Take 4 mg by mouth. 09/22/19 25 025 Discontinued Encounters Date Type Department Care Team Description 06/03/2025 1:30 PM EST Office Visit [facility] of [facility]rology [address], [address], [address] [place] [address] Harry Seth MD, PhD Ataxia (Primary Dx) from Last 3 Months Social History Tobacco Use Types Packs/Day Years Used Date Smoking Tobacco: Never Passive Smoke Exposure: Never Smokeless Tobacco: Never Tobacco Cessation:Counseling Given: Not Answered Alcohol Use Standard Drinks/Week Comments Never 0 (1 standard drink = 0.6 oz pur e alcohol) Education Answer Date Recorded Are you interested in more education? Not on angela e 03/15/2025 Are you concerned about learning? Not on file 03/15/2025 No 03/15/2025 No 03/15/2025 Digital Access Answer Date Recorded No 03/15/2025 No 03/15/2025 Reliable internet access at home? Not on file 03/15/2025 Device with a working camera? Not on file Sex and Gender Information Value Date Recorded Sex Assigned at Not on file Legal Sex Male 10:45 AM EDT Gender Identity Not on file Sexual Orientation Not on file Last Filed Vital Signs Vital Sign Reading Time Taken Comments Blood Pressure 111/73 06/03/2025 12:58 PM EST Pulse 78 06/03/2025 12:58 PM EST Temperature 36.3 C (97.3 F) 06/03/2025 12:58 PM EST Respiratory Rate - - Oxygen Saturation 98% 06/03/2025 12:58 PM EST Inhaled Oxygen Concentration - - Weight 66.7 kg (147 lb) 06/03/2025 12:58 PM EST Height 159.2 cm (5' 2.68 ) 06/03/2025 12:[address] Body Mass Index 26.31 06/03/2025 12:58 PM EST Plan of Treatment Health Maintenance Due Date Last Done Comments Adult Td,Tdap Booster 1957 LIPID PANEL 1957 DEPRESSION SCREENING 1969 HEPATITIS C SCREENING 12/14/1975 COLOGUARD 2002 COLONOSCOPY 2002 COLORECTAL CANCER SCREENING 2002 FIT TEST 2002 FOBT 2002 SIGMOIDOSCOPY 2002 VIRTUAL COLONOSCOPY 2002 PNEUMOCOCCAL VACCINES (50+ y ears) (1 of 1 - PCV) 12/14/2007 ZOSTER VACCINES (1 of 2) 12/14/2007 INFLUENZA VACCINE (#1) 2025 COVID-19 VACCINE (1 - 2024-2 6 season) 2025 SCREENING FOR DIABETES 11/13/2027 11/12/2024 RSV VACCINE (1 - 1-dose 75+ series) 2032 SMOKING STATUS SCREENING (On ce After 26 Yrs) Completed 06/03/2025 HEPATITIS A VACCINES Aged Out No long er eligible based on patient's age to complete this topic HIB VACCINES Aged Out No longer eligi ble based on patient's age to complete this topic MENINGOCOCCAL VACCINES (ACWY) Aged Out No longer eligible based on patient's age to complete this topic MENINGOCOCCAL VACCINES (B) Aged Out N o longer eligible based on patient's age to complete this topic Medical Devices Not on file Insurance [facility] REPLACEMENT MEDICARE PART A & [place] [address] [address] MEDICARE REPLACEMENT MEDICARE PART A & B [facility] MEDICARE REPLACEMENT MEDICARE PART A & B MEDICARE PART A & [place] [address] MEDICARE REPLACEMENT MEDICARE PART A & B O MEDICARE REPLACEMENT [facility] MEDICARE PART A & B Care Teams Commercial Lines Account Manager Relationship Specialty Start Date End Date Peter Lew MD [address] [place] [address] [place] [address] PCP - General Internal Medicine 01/06/24 Additional Source Comments The information contained in this document represents components of the legal health record. It is not the complete legal health record.[facility]
[2025-06-09] MEDS: Lidocaine 4 % Patch ADH..PATCH 1 PATCH TRANSDERMA (17:03)
[2025-06-09 17:17] VITALS: BP 147/79; PULSE 85; RESP 16; TEMP 36.7; O2SAT 98
== END 2025-06-09 17:18 | disposition home or self-care (01) ==
PROVIDERS: Emergency Provider Emergency Medicine Emergency Medical Services; PCP Pediatrics
DX: S30.0XXA Contusion of lower back and pelvis, initial encounter (principal); X58.XXXA Exposure to other specified factors, initial encounter; W10.9XXA Fall (on) (from) unspecified stairs and steps, initial encounter; Y93.9 Activity, unspecified; Y92.9 Unspecified place or not applicable; Y99.8 Other external cause status
CPT/HCPCS: 72131; 99284

== ENCOUNTER → 2025-06-09 14:35 | Outpatient (BNV) | payer OTHER, SELFPAY | PROVIDERS: Emergency Provider Emergency Medicine Emergency Medical Services; PCP Pediatrics; Visit Provider Radiology Vascular & Interventional Radiology | DX: M54.50 Low back pain, unspecified (principal); Z04.3 Encounter for examination and observation following other accident | CPT/HCPCS: 72131 ==